=== PATIENT | male | born 1955 | race Caucasian/White ===

== ENCOUNTER 2017-02-23 14:08 | Inpatient (IN) | payer OTHER ==
[~2017-02-23] VITALS: Ht 177.8 cm; Wt 79.5 kg
[~2017-02-23 14:08] MED LIST: ANTIVERT25 MG PO; CARVEDILOL25 MG PO; CLONIDINE HCL0.1 MG PO; CLOPIDOGREL75 MG PO; LEVOTHYROXINE125 MCG PO; METOCLOPRAMIDE10 MG PO; SSD25GM TP; VALIUM5 MG PO; ZANTAC150 MG PO
[2017-02-23 15:22] LABS: EOSINOPHIL (%) 2.6 % (0-5); EOSINOPHIL COUNT 0.2 K/uL (0-0.3); IMMATURE GRANULOCYTE (%) 0.4 % (0.0-0.7); INSTRUMENT ABS NEUTROPHIL CT 6.2 K/uL; LYMPHOCYTE COUNT 1.2 K/uL (1.0-2.8); MCH 29.3 PG (29.0-34.0); MCHC 33.8 G/DL (30.0-36.0); MCV 86.6 FL (86-99); MEAN PLAT.VOLUME 9.8 uM^3 (9.0-12.4); MONOCYTE (%) 5.7 % (3-12); MONOCYTE COUNT 0.5 K/uL (0-0.8); NEUTROPHIL (%) 76.7 % (45-76); NEUTROPHIL COUNT 6.2 K/uL (1.8-6.4); PLATELET COUNT 142 K/uL (156-360); RBC DIS.WIDTH-CV 13.8 % (11.8-14.6); RBC DIS.WIDTH-SD 43.6 % (39-53); RED BLOOD COUNT 4.85 M/uL (4.00-5.50); WHITE BLOOD COUNT 8.1 K/uL (4.1-10.2)
[2017-02-23 15:32] LABS: CHLORIDE 111 mEq/L (99-109); SODIUM 143 mEq/L (136-147)
[2017-02-23 15:34] LABS: GLUCOSE 159 mg/dL (70-99)
[2017-02-23 15:35] LABS: ANION GAP 13 MEQ/L (2-14)
[2017-02-23 15:38] LABS: GFR ESTIMATE (CALCULATED) 9 mL/min/
[2017-02-23 15:39] LABS: UREA NITROGEN (BUN) 57 mg/dL (9-23)
[2017-02-23] MEDS ORDERED: GLIMEPIRIDE2 MG PO (15:39)
[2017-02-23] MEDS ORDERED: COREG12.5 M1 PO (15:39)
[2017-02-23] MEDS ORDERED: PRAVASTATIN SOD40 MG PO (15:40)
[2017-02-23] MEDS ORDERED: CLONIDINE HCL0.1 MG PO (16:24)
[2017-02-23] MEDS ORDERED: GENTAMICIN SULF30 GM TP (16:26)
[2017-02-23] MEDS ORDERED: CALCITRIOL0.25 MCG PO (16:27)
[2017-02-23] MEDS ORDERED: SENSIPAR30 MG PO (16:27)
[2017-02-23] MEDS ORDERED: RENA-VITE RX T1 EACH PO (16:27)
[2017-02-23 22:47] LABS: ADD MIUA? YES; BILIRUBIN NEGATIVE; BLOOD NEGATIVE; COLOR YELLOW ((YELLOW)); GLUCOSE (STRIP) 50; KETONES NEGATIVE; LEUKOCYTES NEGATIVE; NITRITE NEGATIVE; PROTEIN (STRIP) >=500; SPECIFIC GRAVITY 1.009 (1.000-1.030); UROBILINOGEN 0.2 MG/DL (0.2-1.0)
[2017-02-23 22:49] LABS: BACTERIA NONE SEEN /HPF; EPITHELIAL CELLS NONE SEEN /HPF; MUCUS NONE SEEN /LPF; RED BLOOD CELLS 0-5 /HPF (0-5); UCUL ADDED? NO; WHITE BLOOD CELLS 0-5 /HPF (0-5)
[2017-02-23 23:58] VITALS: BP 152/83
[2017-02-24 00:23] LABS: POINT-OF-CARE METER ID UU14174225
[2017-02-24 00:54] LABS: TROP-I INTERPRETATION NEGATIVE; TROPONIN-I 0.05 ng/mL (0.0-0.30)
[2017-02-24 03:50] VITALS: BP 143/70
[2017-02-24 06:19] LABS: POINT-OF-CARE METER ID UU14188625
[2017-02-24 07:56] VITALS: BP 129/62
[2017-02-24 08:00] LABS: EOSINOPHIL (%) 3.9 % (0-5); EOSINOPHIL COUNT 0.3 K/uL (0-0.3); HEMATOCRIT 37.9 % (38.0-50.0); IMMATURE GRANULOCYTE (%) 0.3 % (0.0-0.7); INSTRUMENT ABS NEUTROPHIL CT 4.3 K/uL; LYMPHOCYTE COUNT 1.7 K/uL (1.0-2.8); MCH 29.8 PG (29.0-34.0); MCV 87.5 FL (86-99); MEAN PLAT.VOLUME 10.3 uM^3 (9.0-12.4); MONOCYTE COUNT 0.5 K/uL (0-0.8); NEUTROPHIL (%) 63.7 % (45-76); NEUTROPHIL COUNT 4.3 K/uL (1.8-6.4); PLATELET COUNT 125 K/uL (156-360); RBC DIS.WIDTH-CV 13.8 % (11.8-14.6); RBC DIS.WIDTH-SD 44.1 % (39-53); RED BLOOD COUNT 4.33 M/uL (4.00-5.50); WHITE BLOOD COUNT 6.7 K/uL (4.1-10.2)
[2017-02-24 08:27] LABS: TROP-I INTERPRETATION NEGATIVE; TROPONIN-I 0.08 ng/mL (0.0-0.30)
[2017-02-24 08:30] LABS: ANION GAP 13 MEQ/L (2-14); CHLORIDE 113 MEQ/L (99-109); GFR ESTIMATE (CALCULATED) 9 mL/min/; GLUCOSE 133 mg/dL (70-99); MAGNESIUM 1.8 mg/dl (1.3-2.7); POTASSIUM 4.1 MEQ/L (3.7-5.4); SAMPLE HEMOLYSIS CHECK 0; SAMPLE ICTERIC CHECK 0; SAMPLE LIPEMIA CHECK 0; SODIUM 148 MEQ/L (136-147); UREA NITROGEN (BUN) 61 mg/dL (9-23)
[2017-02-24 10:19] LABS: HBSG INDEX 0.22; HPCA INDEX 0.14
[2017-02-24 10:20] LABS: ANTI-HEPATITIS A VIRUS (IGM) Nonreactive; HAV INDEX 0.14
[2017-02-24 10:21] LABS: ANTI-HEPATITIS B CORE (IGM) Nonreactive; HBC IgM INDEX 0.09
[2017-02-24 12:34] LABS: POINT-OF-CARE METER ID UU14174225
[2017-02-24 13:36] LABS: TROP-I INTERPRETATION NEGATIVE; TROPONIN-I 0.06 ng/mL (0.0-0.30)
[2017-02-24 15:51] VITALS: BP 147/90
[2017-02-24 17:48] VITALS: BP 168/85
[2017-02-24 18:17] LABS: GASTRIC OCCULT BLD. NEGATIVE; INTERNAL CONTROL VALID? YES
[2017-02-24 20:32] LABS: POINT-OF-CARE METER ID UU13113675
[2017-02-24 21:29] VITALS: BP 196/102
[2017-02-24 21:50] VITALS: BP 158/82
[2017-02-24 22:11] LABS: ALKALINE PHOSPHATASE 76 IU/L (3-129); ANION GAP 10 MEQ/L (2-14); CHLORIDE 109 MEQ/L (99-109); GFR ESTIMATE (CALCULATED) 9 mL/min/; GLUCOSE 162 mg/dL (70-99); POTASSIUM 3.6 MEQ/L (3.7-5.4); SAMPLE HEMOLYSIS CHECK 0; SAMPLE ICTERIC CHECK 0; SAMPLE LIPEMIA CHECK 0; SODIUM 143 MEQ/L (136-147); TOTAL BILIRUBIN 0.4 MG/DL (0.0-1.0); UREA NITROGEN (BUN) 53 mg/dL (9-23)
[2017-02-25 03:44] VITALS: BP 169/84
[2017-02-25 08:28] VITALS: BP 145/74
[2017-02-25 08:36] LABS: EOSINOPHIL (%) 4.3 % (0-5); EOSINOPHIL COUNT 0.3 K/uL (0-0.3); HEMATOCRIT 32.7 % (38.0-50.0); IMMATURE GRANULOCYTE (%) 0.3 % (0.0-0.7); INSTRUMENT ABS NEUTROPHIL CT 4.4 K/uL; LYMPHOCYTE COUNT 1.4 K/uL (1.0-2.8); MCH 29.8 PG (29.0-34.0); MCHC 33.9 G/DL (30.0-36.0); MCV 87.7 FL (86-99); MEAN PLAT.VOLUME 9.5 uM^3 (9.0-12.4); MONOCYTE (%) 9.9 % (3-12); MONOCYTE COUNT 0.7 K/uL (0-0.8); NEUTROPHIL (%) 65.3 % (45-76); NEUTROPHIL COUNT 4.4 K/uL (1.8-6.4); PLATELET COUNT 113 K/uL (156-360); RBC DIS.WIDTH-CV 13.9 % (11.8-14.6); RBC DIS.WIDTH-SD 44.5 % (39-53); RED BLOOD COUNT 3.73 M/uL (4.00-5.50); WHITE BLOOD COUNT 6.7 K/uL (4.1-10.2)
[2017-02-25 09:13] LABS: ALKALINE PHOSPHATASE 65 IU/L (3-129); ANION GAP 10 MEQ/L (2-14); CHLORIDE 109 MEQ/L (99-109); GFR ESTIMATE (CALCULATED) 9 mL/min/; GLUCOSE 215 mg/dL (70-99); POTASSIUM 3.4 MEQ/L (3.7-5.4); SAMPLE HEMOLYSIS CHECK 0; SAMPLE ICTERIC CHECK 0; SAMPLE LIPEMIA CHECK 0; SODIUM 142 MEQ/L (136-147); UREA NITROGEN (BUN) 54 mg/dL (9-23)
[2017-02-25 09:25] LABS: TOTAL BILIRUBIN 0.3 MG/DL (0.0-1.0)
[2017-02-25 11:47] VITALS: BP 118/64
[2017-02-25 12:31] LABS: POINT-OF-CARE METER ID UU13113725
[2017-02-25 17:26] VITALS: BP 128/76
[2017-02-25 17:30] LABS: POINT-OF-CARE METER ID UU13113725
[2017-02-25 17:59] LABS: POINT-OF-CARE METER ID UU13113725
[2017-02-25 19:29] VITALS: BP 162/76
[2017-02-25 20:46] LABS: POINT-OF-CARE METER ID UU13113725
[2017-02-25 23:13] VITALS: BP 179/93
[2017-02-26] VITALS (7 sets, daily range): BP systolic 116–160; BP diastolic 55–83
[2017-02-26 06:40] LABS: EOSINOPHIL (%) 4.9 % (0-5); EOSINOPHIL COUNT 0.3 K/uL (0-0.3); HEMATOCRIT 35.6 % (38.0-50.0); IMMATURE GRANULOCYTE (%) 0.4 % (0.0-0.7); LYMPHOCYTE COUNT 1.6 K/uL (1.0-2.8); MCH 29.9 PG (29.0-34.0); MCHC 33.7 G/DL (30.0-36.0); MCV 88.6 FL (86-99); MEAN PLAT.VOLUME 10.6 uM^3 (9.0-12.4); MONOCYTE (%) 10.6 % (3-12); MONOCYTE COUNT 0.7 K/uL (0-0.8); NEUTROPHIL (%) 60.2 % (45-76); PLATELET COUNT 104 K/uL (156-360); RBC DIS.WIDTH-CV 13.7 % (11.8-14.6); RBC DIS.WIDTH-SD 44.5 % (39-53); RED BLOOD COUNT 4.02 M/uL (4.00-5.50); WHITE BLOOD COUNT 6.7 K/uL (4.1-10.2)
[2017-02-26 08:16] LABS: ANION GAP 16 MEQ/L (2-14); CHLORIDE 101 MEQ/L (99-109); GFR ESTIMATE (CALCULATED) 14 mL/min/; GLUCOSE 144 mg/dL (70-99); POTASSIUM 3.4 MEQ/L (3.7-5.4); SAMPLE HEMOLYSIS CHECK 0; SAMPLE ICTERIC CHECK 0; SAMPLE LIPEMIA CHECK 0; SODIUM 137 MEQ/L (136-147); UREA NITROGEN (BUN) 26 mg/dL (9-23)
[2017-02-26 11:48] LABS: POINT-OF-CARE METER ID UU13113725
[2017-02-26 15:59] LABS: POINT-OF-CARE METER ID UU13113725
[2017-02-26 21:11] LABS: POINT-OF-CARE METER ID UU13113725
[2017-02-27 03:28] VITALS: BP 130/78
[2017-02-27 05:40] LABS: POINT-OF-CARE METER ID UU13113725
[2017-02-27 06:33] LABS: EOSINOPHIL (%) 5.3 % (0-5); EOSINOPHIL COUNT 0.4 K/uL (0-0.3); HEMATOCRIT 35.3 % (38.0-50.0); IMMATURE GRANULOCYTE (%) 0.4 % (0.0-0.7); INSTRUMENT ABS NEUTROPHIL CT 4.4 K/uL; LYMPHOCYTE COUNT 1.7 K/uL (1.0-2.8); MCH 29.9 PG (29.0-34.0); MCHC 33.7 G/DL (30.0-36.0); MCV 88.7 FL (86-99); MEAN PLAT.VOLUME 9.6 uM^3 (9.0-12.4); MONOCYTE (%) 11.7 % (3-12); MONOCYTE COUNT 0.9 K/uL (0-0.8); NEUTROPHIL (%) 59.3 % (45-76); NEUTROPHIL COUNT 4.4 K/uL (1.8-6.4); PLATELET COUNT 105 K/uL (156-360); RBC DIS.WIDTH-CV 13.7 % (11.8-14.6); RBC DIS.WIDTH-SD 44.6 % (39-53); RED BLOOD COUNT 3.98 M/uL (4.00-5.50); WHITE BLOOD COUNT 7.4 K/uL (4.1-10.2)
[2017-02-27 06:56] LABS: ANION GAP 9 MEQ/L (2-14); CHLORIDE 101 MEQ/L (99-109); GFR ESTIMATE (CALCULATED) 15 mL/min/; GLUCOSE 145 mg/dL (70-99); SAMPLE HEMOLYSIS CHECK 0; SAMPLE ICTERIC CHECK 0; SAMPLE LIPEMIA CHECK 0; SODIUM 136 MEQ/L (136-147); UREA NITROGEN (BUN) 23 mg/dL (9-23)
[2017-02-27 07:26] VITALS: BP 129/78
[2017-02-27 10:17] VITALS: BP 148/85
[2017-02-27 12:53] LABS: POINT-OF-CARE METER ID UU13113725
[2017-02-27 15:38] VITALS: BP 136/81
[2017-02-27 16:57] LABS: POINT-OF-CARE METER ID UU13113725
[2017-02-27 18:48] VITALS: BP 112/64
[2017-02-27 21:27] LABS: POINT-OF-CARE METER ID UU13113725
[2017-02-27 23:12] VITALS: BP 110/68
[2017-02-28 03:55] VITALS: BP 136/75
[2017-02-28 05:55] LABS: POINT-OF-CARE METER ID UU13113725
[2017-02-28 06:47] LABS: EOSINOPHIL (%) 6.1 % (0-5); EOSINOPHIL COUNT 0.5 K/uL (0-0.3); HEMATOCRIT 34.7 % (38.0-50.0); IMMATURE GRANULOCYTE (%) 0.6 % (0.0-0.7); IMMATURE GRANULOCYTE COUNT 0.1 K/uL; INSTRUMENT ABS NEUTROPHIL CT 4.8 K/uL; LYMPHOCYTE COUNT 1.8 K/uL (1.0-2.8); MCH 29.5 PG (29.0-34.0); MCHC 33.4 G/DL (30.0-36.0); MCV 88.3 FL (86-99); MEAN PLAT.VOLUME 10.2 uM^3 (9.0-12.4); MONOCYTE (%) 9.6 % (3-12); MONOCYTE COUNT 0.8 K/uL (0-0.8); NEUTROPHIL (%) 60.6 % (45-76); NEUTROPHIL COUNT 4.8 K/uL (1.8-6.4); PLATELET COUNT 109 K/uL (156-360); RBC DIS.WIDTH-CV 13.5 % (11.8-14.6); RBC DIS.WIDTH-SD 43.7 % (39-53); RED BLOOD COUNT 3.93 M/uL (4.00-5.50); WHITE BLOOD COUNT 7.8 K/uL (4.1-10.2)
[2017-02-28 07:21] LABS: ANION GAP 11 MEQ/L (2-14); CHLORIDE 99 MEQ/L (99-109); GFR ESTIMATE (CALCULATED) 11 mL/min/; GLUCOSE 131 mg/dL (70-99); POTASSIUM 4.1 MEQ/L (3.7-5.4); SAMPLE HEMOLYSIS CHECK 0; SAMPLE ICTERIC CHECK 0; SAMPLE LIPEMIA CHECK 0; SODIUM 135 MEQ/L (136-147)
[2017-02-28 07:35] LABS: UREA NITROGEN (BUN) 40 mg/dL (9-23)
[2017-02-28 07:38] VITALS: BP 146/70
[2017-02-28 10:31] LABS: MAGNESIUM 1.9 mg/dl (1.3-2.7)
[2017-02-28 11:45] LABS: POINT-OF-CARE METER ID UU13113725
[2017-02-28 11:48] VITALS: BP 113/71
[2017-02-28 16:02] LABS: POINT-OF-CARE METER ID UU13113725
[2017-02-28 16:06] VITALS: BP 146/79
[2017-02-28 16:24] LABS: C-REACTIVE PROTEIN 2.8 MG/L (0-10)
[2017-02-28 18:04] LABS: ERTH.SED.RATE 17 MM/HR (0-20)
[2017-02-28 19:16] VITALS: BP 132/80
[2017-02-28 22:55] VITALS: BP 150/82
[2017-03-01 04:27] VITALS: BP 140/78
[2017-03-01 07:18] LABS: C DIFF TOXIN NEGATIVE (NEGATIVE)
[2017-03-01 07:20] LABS: PROBE CHECK PASS; SPECIMEN PROCESSING CONTROL PASS
[2017-03-01 07:46] VITALS: BP 112/55
[2017-03-01 09:25] LABS: EOSINOPHIL (%) 4.9 % (0-5); EOSINOPHIL COUNT 0.5 K/uL (0-0.3); HEMATOCRIT 36.5 % (38.0-50.0); IMMATURE GRANULOCYTE (%) 0.4 % (0.0-0.7); INSTRUMENT ABS NEUTROPHIL CT 6.8 K/uL; LYMPHOCYTE COUNT 1.5 K/uL (1.0-2.8); MCH 29.9 PG (29.0-34.0); MEAN PLAT.VOLUME 10.5 uM^3 (9.0-12.4); MONOCYTE (%) 8.3 % (3-12); MONOCYTE COUNT 0.8 K/uL (0-0.8); NEUTROPHIL (%) 70.8 % (45-76); NEUTROPHIL COUNT 6.8 K/uL (1.8-6.4); PLATELET COUNT 129 K/uL (156-360); RBC DIS.WIDTH-CV 13.5 % (11.8-14.6); RBC DIS.WIDTH-SD 43.4 % (39-53); RED BLOOD COUNT 4.15 M/uL (4.00-5.50); WHITE BLOOD COUNT 9.6 K/uL (4.1-10.2)
[2017-03-01 09:59] LABS: ANION GAP 13 MEQ/L (2-14); CHLORIDE 97 MEQ/L (99-109); GFR ESTIMATE (CALCULATED) 9 mL/min/; GLUCOSE 128 mg/dL (70-99); POTASSIUM 4.2 MEQ/L (3.7-5.4); SAMPLE HEMOLYSIS CHECK 0; SAMPLE ICTERIC CHECK 0; SAMPLE LIPEMIA CHECK 0; SODIUM 134 MEQ/L (136-147); UREA NITROGEN (BUN) 57 mg/dL (9-23)
[2017-03-01 13:47] VITALS: BP 144/88
[2017-03-01 15:32] VITALS: BP 145/78
[2017-03-01 16:01] LABS: POINT-OF-CARE METER ID UU13113725
[2017-03-01 19:36] VITALS: BP 153/88
[2017-03-01 23:50] VITALS: BP 159/88
[2017-03-02 04:34] VITALS: BP 130/80
[2017-03-02 07:46] VITALS: BP 115/71
[2017-03-02 11:13] VITALS: BP 112/69
[2017-03-02 15:57] VITALS: BP 159/87
[2017-03-02 19:03] VITALS: BP 176/96
[2017-03-02 23:21] VITALS: BP 130/68
[2017-03-03 03:56] VITALS: BP 145/61
[2017-03-03 07:55] VITALS: BP 118/81
[2017-03-03 09:17] LABS: BASOPHIL COUNT 0.1 K/uL (0-0.1); EOSINOPHIL (%) 5.7 % (0-5); EOSINOPHIL COUNT 0.6 K/uL (0-0.3); HEMATOCRIT 37.8 % (38.0-50.0); IMMATURE GRANULOCYTE (%) 0.5 % (0.0-0.7); IMMATURE GRANULOCYTE COUNT 0.1 K/uL; INSTRUMENT ABS NEUTROPHIL CT 6.7 K/uL; LYMPHOCYTE COUNT 1.4 K/uL (1.0-2.8); MCH 29.7 PG (29.0-34.0); MCHC 33.6 G/DL (30.0-36.0); MCV 88.3 FL (86-99); MEAN PLAT.VOLUME 10.9 uM^3 (9.0-12.4); MONOCYTE (%) 9.6 % (3-12); MONOCYTE COUNT 0.9 K/uL (0-0.8); NEUTROPHIL (%) 69.5 % (45-76); NEUTROPHIL COUNT 6.7 K/uL (1.8-6.4); PLATELET COUNT 144 K/uL (156-360); RBC DIS.WIDTH-CV 13.7 % (11.8-14.6); RBC DIS.WIDTH-SD 44.1 % (39-53); RED BLOOD COUNT 4.28 M/uL (4.00-5.50); WHITE BLOOD COUNT 9.7 K/uL (4.1-10.2)
[2017-03-03 09:22] LABS: ANION GAP 15 MEQ/L (2-14); CHLORIDE 99 MEQ/L (99-109); POTASSIUM 4.3 MEQ/L (3.7-5.4); SAMPLE HEMOLYSIS CHECK 0; SAMPLE ICTERIC CHECK 0; SAMPLE LIPEMIA CHECK 0; SODIUM 134 MEQ/L (136-147)
[2017-03-03 09:32] LABS: GFR ESTIMATE (CALCULATED) 9 mL/min/; GLUCOSE 150 mg/dL (70-99); UREA NITROGEN (BUN) 57 mg/dL (9-23)
[2017-03-03 16:33] VITALS: BP 137/78
[2017-03-03 19:14] VITALS: BP 124/69
[2017-03-03 22:57] VITALS: BP 110/81
[2017-03-04 03:23] VITALS: BP 134/74
[2017-03-04 06:00] VITALS: BP 139/80
[2017-03-04 07:00] VITALS: BP 126/66
[2017-03-04 16:07] VITALS: BP 149/79
[2017-03-04 16:40] LABS: POINT-OF-CARE METER ID UU13113725
[2017-03-04 23:04] VITALS: BP 147/72
[2017-03-05 03:53] VITALS: BP 152/80
[2017-03-05 08:19] LABS: EOSINOPHIL (%) 7.2 % (0-5); EOSINOPHIL COUNT 0.5 K/uL (0-0.3); HEMATOCRIT 37.2 % (38.0-50.0); IMMATURE GRANULOCYTE (%) 0.6 % (0.0-0.7); INSTRUMENT ABS NEUTROPHIL CT 3.8 K/uL; LYMPHOCYTE COUNT 1.5 K/uL (1.0-2.8); MCH 29.8 PG (29.0-34.0); MCHC 33.9 G/DL (30.0-36.0); MCV 87.9 FL (86-99); MEAN PLAT.VOLUME 9.6 uM^3 (9.0-12.4); MONOCYTE (%) 9.7 % (3-12); MONOCYTE COUNT 0.6 K/uL (0-0.8); NEUTROPHIL (%) 58.7 % (45-76); NEUTROPHIL COUNT 3.8 K/uL (1.8-6.4); PLATELET COUNT 146 K/uL (156-360); RBC DIS.WIDTH-CV 13.6 % (11.8-14.6); RBC DIS.WIDTH-SD 43.8 % (39-53); RED BLOOD COUNT 4.23 M/uL (4.00-5.50)
[2017-03-05 08:28] LABS: WHITE BLOOD COUNT 6.5 K/uL (4.1-10.2)
[2017-03-05 08:31] LABS: ANION GAP 8 MEQ/L (2-14); CHLORIDE 101 MEQ/L (99-109); GLUCOSE 123 mg/dL (70-99); SAMPLE HEMOLYSIS CHECK 0; SAMPLE ICTERIC CHECK 0; SAMPLE LIPEMIA CHECK 0; SODIUM 136 MEQ/L (136-147)
[2017-03-05 08:34] LABS: GFR ESTIMATE (CALCULATED) 24 mL/min/; POTASSIUM 3.3 MEQ/L (3.7-5.4); UREA NITROGEN (BUN) 23 mg/dL (9-23)
[2017-03-05 11:20] VITALS: BP 144/85
[2017-03-05 15:50] VITALS: BP 166/97
[2017-03-05 20:48] LABS: POINT-OF-CARE METER ID UU13113725
[2017-03-05 21:12] VITALS: BP 185/100
[2017-03-05 22:19] VITALS: BP 168/88
[2017-03-06 05:43] LABS: POINT-OF-CARE METER ID UU13113725
[2017-03-06 07:06] VITALS: BP 133/86
[2017-03-06 08:32] LABS: ALKALINE PHOSPHATASE 73 IU/L (3-129); ANION GAP 13 MEQ/L (2-14); CHLORIDE 98 MEQ/L (99-109); GFR ESTIMATE (CALCULATED) 12 mL/min/; GLUCOSE 109 mg/dL (70-99); POTASSIUM 4.2 MEQ/L (3.7-5.4); SAMPLE HEMOLYSIS CHECK 1; SAMPLE ICTERIC CHECK 0; SAMPLE LIPEMIA CHECK 0; SODIUM 133 MEQ/L (136-147); TOTAL BILIRUBIN 0.5 MG/DL (0.0-1.0); UREA NITROGEN (BUN) 38 mg/dL (9-23)
[2017-03-06 08:38] LABS: EOSINOPHIL (%) 7.9 % (0-5); EOSINOPHIL COUNT 0.6 K/uL (0-0.3); HEMATOCRIT 36.6 % (38.0-50.0); IMMATURE GRANULOCYTE (%) 0.7 % (0.0-0.7); IMMATURE GRANULOCYTE COUNT 0.1 K/uL; INSTRUMENT ABS NEUTROPHIL CT 4.4 K/uL; LYMPHOCYTE COUNT 1.8 K/uL (1.0-2.8); MCH 29.8 PG (29.0-34.0); MCHC 34.4 G/DL (30.0-36.0); MCV 86.5 FL (86-99); MEAN PLAT.VOLUME 9.8 uM^3 (9.0-12.4); MONOCYTE (%) 10.6 % (3-12); MONOCYTE COUNT 0.8 K/uL (0-0.8); NEUTROPHIL (%) 57.1 % (45-76); NEUTROPHIL COUNT 4.4 K/uL (1.8-6.4); PLATELET COUNT 145 K/uL (156-360); RBC DIS.WIDTH-CV 13.4 % (11.8-14.6); RED BLOOD COUNT 4.23 M/uL (4.00-5.50); WHITE BLOOD COUNT 7.6 K/uL (4.1-10.2)
[2017-03-06 15:49] VITALS: BP 137/86
[2017-03-06 16:30] LABS: POINT-OF-CARE METER ID UU13113725
[2017-03-06 21:40] VITALS: BP 152/83
[2017-03-06 22:14] VITALS: BP 161/86
[2017-03-07 06:24] LABS: POINT-OF-CARE METER ID UU13113725
[2017-03-07 06:36] LABS: BASOPHIL COUNT 0.1 K/uL (0-0.1); EOSINOPHIL (%) 7.1 % (0-5); EOSINOPHIL COUNT 0.6 K/uL (0-0.3); HEMATOCRIT 37.4 % (38.0-50.0); IMMATURE GRANULOCYTE (%) 0.6 % (0.0-0.7); IMMATURE GRANULOCYTE COUNT 0.1 K/uL; INSTRUMENT ABS NEUTROPHIL CT 4.8 K/uL; MCH 29.4 PG (29.0-34.0); MCV 86.6 FL (86-99); MEAN PLAT.VOLUME 9.6 uM^3 (9.0-12.4); MONOCYTE (%) 10.1 % (3-12); MONOCYTE COUNT 0.8 K/uL (0-0.8); NEUTROPHIL (%) 57.8 % (45-76); NEUTROPHIL COUNT 4.8 K/uL (1.8-6.4); PLATELET COUNT 146 K/uL (156-360); RBC DIS.WIDTH-CV 13.2 % (11.8-14.6); RBC DIS.WIDTH-SD 41.5 % (39-53); RED BLOOD COUNT 4.32 M/uL (4.00-5.50); WHITE BLOOD COUNT 8.3 K/uL (4.1-10.2)
[2017-03-07 06:48] VITALS: BP 121/69
[2017-03-07 07:08] LABS: ALKALINE PHOSPHATASE 76 IU/L (3-129); ANION GAP 14 MEQ/L (2-14); CHLORIDE 99 MEQ/L (99-109); GLUCOSE 126 mg/dL (70-99); POTASSIUM 4.3 MEQ/L (3.7-5.4); SAMPLE HEMOLYSIS CHECK 0; SAMPLE ICTERIC CHECK 0; SAMPLE LIPEMIA CHECK 0; SODIUM 135 MEQ/L (136-147); TOTAL BILIRUBIN 0.5 MG/DL (0.0-1.0); UREA NITROGEN (BUN) 50 mg/dL (9-23)
[2017-03-07 07:14] LABS: GFR ESTIMATE (CALCULATED) 9 mL/min/
[2017-03-07 08:15] LABS: Estimated Average Glucose 105 mg/dL (70-123); HEMOGLOBIN A1c (GLYCOHEMOGLOB) 5.3 % HGB (Below 5.7)
[2017-03-07 10:45] LABS: AHBS INDEX 1.15; HEPATITIS B SURFACE ANTIBODY Nonreactive
[2017-03-07 14:15] VITALS: BP 133/83
[2017-03-07 15:39] VITALS: BP 112/73
[2017-03-07 16:16] LABS: POINT-OF-CARE METER ID UU13113725
[2017-03-07 22:01] VITALS: BP 154/98
[2017-03-07 22:59] VITALS: BP 150/70
[2017-03-08 06:41] VITALS: BP 134/64
[2017-03-08 15:08] VITALS: BP 162/85
[2017-03-08 16:56] VITALS: BP 141/91
[2017-03-08 22:47] VITALS: BP 135/79
[2017-03-09 05:52] VITALS: BP 142/83; BP 80/61
[2017-03-09 05:53] VITALS: BP 81/57
[2017-03-09 07:16] VITALS: BP 121/55
[2017-03-09] MEDS ORDERED: MIDODRINE HCL5 MG PO (08:04)
[2017-03-09] MEDS ORDERED: NOVOLOG PE100 UNITS/ SC (08:05)
[2017-03-09 08:42] LABS: EOSINOPHIL (%) 6.7 % (0-5); EOSINOPHIL COUNT 0.6 K/uL (0-0.3); HEMATOCRIT 34.5 % (38.0-50.0); IMMATURE GRANULOCYTE (%) 0.7 % (0.0-0.7); IMMATURE GRANULOCYTE COUNT 0.1 K/uL; INSTRUMENT ABS NEUTROPHIL CT 5.2 K/uL; LYMPHOCYTE COUNT 1.7 K/uL (1.0-2.8); MCH 29.8 PG (29.0-34.0); MCHC 33.9 G/DL (30.0-36.0); MCV 87.8 FL (86-99); MEAN PLAT.VOLUME 9.7 uM^3 (9.0-12.4); MONOCYTE (%) 8.8 % (3-12); MONOCYTE COUNT 0.7 K/uL (0-0.8); NEUTROPHIL (%) 63.2 % (45-76); NEUTROPHIL COUNT 5.2 K/uL (1.8-6.4); PLATELET COUNT 148 K/uL (156-360); RBC DIS.WIDTH-CV 13.4 % (11.8-14.6); RBC DIS.WIDTH-SD 43.1 % (39-53); RED BLOOD COUNT 3.93 M/uL (4.00-5.50); WHITE BLOOD COUNT 8.3 K/uL (4.1-10.2)
[2017-03-09 08:58] LABS: ANION GAP 11 MEQ/L (2-14); CHLORIDE 97 MEQ/L (99-109); GFR ESTIMATE (CALCULATED) 9 mL/min/; GLUCOSE 178 mg/dL (70-99); POTASSIUM 4.1 MEQ/L (3.7-5.4); SAMPLE HEMOLYSIS CHECK 0; SAMPLE ICTERIC CHECK 0; SAMPLE LIPEMIA CHECK 0; SODIUM 133 MEQ/L (136-147); UREA NITROGEN (BUN) 50 mg/dL (9-23)
[2017-03-09] MEDS ORDERED: CARVEDILOL3.125 MG PO (11:18)
[2017-03-09 12:47] LABS: POINT-OF-CARE METER ID UU13113725
[2017-03-09 14:46] VITALS: BP 169/80
[2017-03-09 16:12] LABS: POINT-OF-CARE METER ID UU13113725
== END 2017-03-09 16:38 | DRG 981 ==
LOC: EME 14:08 → 5EAST 16:12 → EDOF 16:12 → 5SOUTH 16:12 → 5EAST 02-24 21:07
PROVIDERS: Emergency Medicine; Family Medicine; Hospitalist; Internal Medicine; Internal Medicine Nephrology
PROC: 02HV33Z Insertion of Infusion Device into Superior Vena Cava, Percutaneous Approach (ICD-10-PCS; principal; 2017-02-24)
PROC: 3E1M39Z Irrigation of Peritoneal Cavity using Dialysate, Percutaneous Approach (ICD-10-PCS; 2017-02-24)
PROC: 5A1D60Z (ICD-10-PCS; 2017-02-25)
PROC: 0WPG33Z Removal of Infusion Device from Peritoneal Cavity, Percutaneous Approach (ICD-10-PCS; 2017-03-02)
DX: I95.1 Orthostatic hypotension (principal); I12.0 Hypertensive chronic kidney disease with stage 5 chronic kidney disease or end stage renal disease; N18.6 End stage renal disease; Z99.2 Dependence on renal dialysis; E86.0 Dehydration; T85.691A Other mechanical complication of intraperitoneal dialysis catheter, initial encounter; Y83.1 Surgical operation with implant of artificial internal device as the cause of abnormal reaction of the patient, or of later complication, without mention of misadventure at the time of the procedure; H50.9 Unspecified strabismus; H53.002 Unspecified amblyopia, left eye; E11.3293 Type 2 diabetes mellitus with mild nonproliferative diabetic retinopathy without macular edema, bilateral; E11.22 Type 2 diabetes mellitus with diabetic chronic kidney disease; N25.0 Renal osteodystrophy; D69.6 Thrombocytopenia, unspecified; E78.5 Hyperlipidemia, unspecified; F17.210 Nicotine dependence, cigarettes, uncomplicated; Z75.1 Person awaiting admission to adequate facility elsewhere; Z79.84 Long term (current) use of oral hypoglycemic drugs; I69.328 Other speech and language deficits following cerebral infarction; R47.81 Slurred speech; I69.398 Other sequelae of cerebral infarction; R26.89 Other abnormalities of gait and mobility; Z91.15 Patient's noncompliance with renal dialysis; K21.9 Gastro-esophageal reflux disease without esophagitis; E87.6 Hypokalemia
CPT/HCPCS: 70450; 71010; 74000; 80048; 80048 91; 80053; 80069; 80074; 80076; 81003; 82271; 82948; 83036; 83735; 84484; 85025; 85651; 86140; 86706; 87493; 93005; 94799; 99281; 99285; C1788; J0360; J0690; J1200; J1644; J1815; J2250; J2405; J2765; J7030; S0020

== ENCOUNTER 2017-04-08 08:54 | Day surgery (SDC) | payer OTHER ==
[~2017-04-08] VITALS: Ht 177.8 cm; Wt 82.0 kg
[~2017-04-08 08:54] MED LIST changes: +CALCITRIOL0.25 MCG PO; +CARVEDILOL3.125 MG PO; +COREG12.5 M1 PO; +DULCOLAX10 MG PR; +FLEET MINERAL133 ML PR; +GENTAMICIN SULF30 GM TP; +GLIMEPIRIDE2 MG PO; +MIDODRINE HCL5 MG PO; +NOVOLOG 10100 UNITS/ SC; +NOVOLOG PE100 UNITS/ SC; +PRAVASTATIN SOD40 MG PO; +PROAMATINE2.5 MG PO; +RENA-VITE RX T1 EACH PO; +SENSIPAR30 MG PO
[2017-04-08] MEDS ORDERED: PLAVIX75 MG PO (09:36)
[2017-04-08] MEDS ORDERED: VITAMIN D35000 UNIT PO (09:38)
[2017-04-08 09:39] LABS: POINT-OF-CARE METER ID UU14174212
[2017-04-08 09:40] VITALS: BP 154/87
[2017-04-08 10:11] LABS: MCH 30.4 PG (29.0-34.0); MCHC 33.2 G/DL (30.0-36.0); MCV 91.8 FL (86-99); MEAN PLAT.VOLUME 9.7 uM^3 (9.0-12.4); PLATELET COUNT 161 K/uL (156-360); RBC DIS.WIDTH-CV 13.6 % (11.8-14.6); RBC DIS.WIDTH-SD 45.2 % (39-53); RED BLOOD COUNT 4.14 M/uL (4.00-5.50); WHITE BLOOD COUNT 8.8 K/uL (4.1-10.2)
[2017-04-08 10:20] LABS: CHLORIDE 104 mEq/L (99-109); POTASSIUM 5.5 mEq/L (3.7-5.4); SODIUM 143 mEq/L (136-147)
[2017-04-08 10:22] LABS: GLUCOSE 141 mg/dL (70-99)
[2017-04-08 10:23] LABS: ANION GAP 15 MEQ/L (2-14)
[2017-04-08 10:25] LABS: GFR ESTIMATE (CALCULATED) 8 mL/min/
[2017-04-08 10:26] LABS: UREA NITROGEN (BUN) 70 mg/dL (9-23)
[2017-04-08 12:12] LABS: METH RESISTANT S AUREUS PCR NEGATIVE (NEGATIVE)
[2017-04-08 12:14] LABS: PROBE CHECK PASS; SPECIMEN PROCESSING CONTROL PASS
[2017-04-08 15:49] LABS: C DIFF TOXIN NEGATIVE (NEGATIVE); PROBE CHECK PASS; SPECIMEN PROCESSING CONTROL PASS
[2017-04-08] MEDS ORDERED: ULTRAM50 MG PO (16:39)
[2017-04-08 17:30] VITALS: BP 161/70
[2017-04-08 18:10] VITALS: BP 174/84
== END 2017-04-08 18:27 | disposition home or self-care (01) ==
LOC: SDC 08:54
PROVIDERS: Surgery
DX: I12.0 Hypertensive chronic kidney disease with stage 5 chronic kidney disease or end stage renal disease (principal); E11.22 Type 2 diabetes mellitus with diabetic chronic kidney disease; N18.6 End stage renal disease; Z99.2 Dependence on renal dialysis; E78.5 Hyperlipidemia, unspecified; K21.9 Gastro-esophageal reflux disease without esophagitis; E03.9 Hypothyroidism, unspecified; Z79.02 Long term (current) use of antithrombotics/antiplatelets; Z82.3 Family history of stroke; Z83.3 Family history of diabetes mellitus; Z82.49 Family history of ischemic heart disease and other diseases of the circulatory system; Z87.891 Personal history of nicotine dependence; Z86.73 Personal history of transient ischemic attack (TIA), and cerebral infarction without residual deficits
CPT/HCPCS: 70450; 80048; 82948; 85027; 87493; 87641; C1768; J0690; J1644; J2250; J2405; J2710; J3010

== ENCOUNTER 2017-07-06 19:49 | Emergency (ER) | payer BC, OTHER ==
[~2017-07-06] VITALS: Ht 177.8 cm; Wt 81.8 kg
[~2017-07-06 19:49] MED LIST changes: +PLAVIX75 MG PO; +ULTRAM50 MG PO; +VITAMIN D35000 UNIT PO
[2017-07-06 20:15] LABS: POINT-OF-CARE METER ID UU13113778
[2017-07-06 20:41] LABS: HEMATOCRIT 39.9 % (38.0-50.0); MCH 30.4 PG (29.0-34.0); MCHC 33.8 G/DL (30.0-36.0); MCV 89.9 FL (86-99); PLATELET COUNT 120 K/uL (156-360); RBC DIS.WIDTH-SD 42.6 % (39-53); RED BLOOD COUNT 4.44 M/uL (4.00-5.50); WHITE BLOOD COUNT 6.5 K/uL (4.1-10.2)
[2017-07-06 20:51] LABS: CHLORIDE 99 mEq/L (99-109); POTASSIUM 4.7 mEq/L (3.7-5.4); SODIUM 141 mEq/L (136-147)
[2017-07-06 20:52] LABS: GLUCOSE 113 mg/dL (70-99)
[2017-07-06 20:54] LABS: ANION GAP 14 MEQ/L (2-14)
[2017-07-06 20:56] LABS: GFR ESTIMATE (CALCULATED) 10 mL/min/
[2017-07-06 20:57] LABS: UREA NITROGEN (BUN) 30 mg/dL (9-23)
[2017-07-06 21:24] LABS: TROP-I INTERPRETATION NEGATIVE; TROPONIN-I 0.02 ng/mL (0.0-0.30)
[2017-07-06 21:33] LABS: CREATINE KINASE 53 IU/L (1-294)
[2017-07-07 00:03] LABS: PROTHROMBIN TIME 11.3 SEC (10.2-12.9)
[2017-07-07 00:06] LABS: PTT 34.5 SEC (25-37)
[2017-07-07 03:39] VITALS: BP 124/65
== END 2017-07-07 03:39 | disposition short-term general hospital (02) ==
LOC: EME 19:49
DX: I74.3 Embolism and thrombosis of arteries of the lower extremities (principal); G93.40 Encephalopathy, unspecified; E11.22 Type 2 diabetes mellitus with diabetic chronic kidney disease; N18.9 Chronic kidney disease, unspecified; Z99.2 Dependence on renal dialysis; L03.115 Cellulitis of right lower limb; Z86.73 Personal history of transient ischemic attack (TIA), and cerebral infarction without residual deficits; F17.200 Nicotine dependence, unspecified, uncomplicated; F03.90 Unspecified dementia, unspecified severity, without behavioral disturbance, psychotic disturbance, mood disturbance, and anxiety; Z88.6 Allergy status to analgesic agent
CPT/HCPCS: 70450; 71020; 80048; 81003; 82550; 82948; 84484; 85027; 85610; 85730; 93005; 93926; 93971; 99281; 99285

== ENCOUNTER 2017-07-17 07:31 | Emergency (ER) | payer BC, OTHER ==
[~2017-07-17] VITALS: Ht 177.8 cm; Wt 81.0 kg
[2017-07-17 08:24] LABS: HEMATOCRIT 35.6 % (38.0-50.0); MCH 29.7 PG (29.0-34.0); MCHC 32.6 G/DL (30.0-36.0); MEAN PLAT.VOLUME 9.1 uM^3 (9.0-12.4); RBC DIS.WIDTH-CV 12.8 % (11.8-14.6); RBC DIS.WIDTH-SD 42.4 % (39-53); RED BLOOD COUNT 3.91 M/uL (4.00-5.50); WHITE BLOOD COUNT 14.6 K/uL (4.1-10.2)
[2017-07-17 08:29] LABS: INTER. NORMALIZED RATIO 1.2; PROTHROMBIN TIME 13.2 SEC (10.2-12.9)
[2017-07-17 08:49] LABS: ANION GAP 13 MEQ/L (2-14); CHLORIDE 96 MEQ/L (99-109); POTASSIUM 4.1 MEQ/L (3.7-5.4); SAMPLE HEMOLYSIS CHECK 0; SAMPLE ICTERIC CHECK 0; SAMPLE LIPEMIA CHECK 0; SODIUM 137 MEQ/L (136-147)
[2017-07-17 08:54] LABS: GFR ESTIMATE (CALCULATED) 8 mL/min/; GLUCOSE 189 mg/dL (70-99); UREA NITROGEN (BUN) 38 mg/dL (9-23)
[2017-07-17 09:11] LABS: PLATELET COUNT 201 K/uL (156-360)
[2017-07-17 10:07] LABS: ADD MIUA? YES; BILIRUBIN NEGATIVE; BLOOD LARGE; COLOR YELLOW ((YELLOW)); GLUCOSE (STRIP) 50; KETONES NEGATIVE; LEUKOCYTES SMALL; NITRITE NEGATIVE; PROTEIN (STRIP) >=500; SPECIFIC GRAVITY 1.014 (1.000-1.030); UROBILINOGEN 0.2 MG/DL (0.2-1.0)
[2017-07-17 10:15] LABS: BACTERIA RARE /HPF; EPITHELIAL CELLS RARE /HPF; GRANULAR CASTS 0-5 /LPF; HYALINE CASTS 0-5 /LPF; MUCUS NONE SEEN /LPF; RED BLOOD CELLS TNTC /HPF (0-5); UCUL ADDED? YES
[2017-07-17] MEDS ORDERED: CIPRO500 MG PO (10:46)
[2017-07-17 11:24] VITALS: BP 157/84
== END 2017-07-17 11:54 | disposition home or self-care (01) ==
LOC: EME 07:31
PROVIDERS: Emergency Medicine
DX: N39.0 Urinary tract infection, site not specified (principal); R31.9 Hematuria, unspecified; T83.098A Other mechanical complication of other urinary catheter, initial encounter; W06.XXXA Fall from bed, initial encounter; Y92.003 Bedroom of unspecified non-institutional (private) residence as the place of occurrence of the external cause; R23.3 Spontaneous ecchymoses; E11.22 Type 2 diabetes mellitus with diabetic chronic kidney disease; I12.0 Hypertensive chronic kidney disease with stage 5 chronic kidney disease or end stage renal disease; N18.6 End stage renal disease; Z99.2 Dependence on renal dialysis; Z79.02 Long term (current) use of antithrombotics/antiplatelets; F17.200 Nicotine dependence, unspecified, uncomplicated
CPT/HCPCS: 80048; 81003; 83605; 85027; 85610; 85730; 87040; 87077; 87086; 87186; 87801; 99281; 99285; J7040

== ENCOUNTER 2017-07-19 12:54 | Emergency (ER) | payer BC, OTHER ==
[~2017-07-19] VITALS: Ht 167.6 cm; Wt 81.0 kg
[~2017-07-19 12:54] MED LIST changes: +CIPRO500 MG PO
[2017-07-19 14:20] LABS: EOSINOPHIL (%) 1.5 % (0-5); EOSINOPHIL COUNT 0.2 K/uL (0-0.3); HEMATOCRIT 33.2 % (38.0-50.0); IMMATURE GRANULOCYTE COUNT 0.1 K/uL; INSTRUMENT ABS NEUTROPHIL CT 9.5 K/uL; LYMPHOCYTE COUNT 0.8 K/uL (1.0-2.8); MCH 29.4 PG (29.0-34.0); MCHC 32.8 G/DL (30.0-36.0); MCV 89.5 FL (86-99); MEAN PLAT.VOLUME 8.8 uM^3 (9.0-12.4); MONOCYTE (%) 7.9 % (3-12); MONOCYTE COUNT 0.9 K/uL (0-0.8); NEUTROPHIL (%) 82.5 % (45-76); NEUTROPHIL COUNT 9.5 K/uL (1.8-6.4); PLATELET COUNT 194 K/uL (156-360); RBC DIS.WIDTH-CV 12.9 % (11.8-14.6); RBC DIS.WIDTH-SD 42.6 % (39-53); RED BLOOD COUNT 3.71 M/uL (4.00-5.50); WHITE BLOOD COUNT 11.6 K/uL (4.1-10.2)
[2017-07-19 14:31] LABS: CHLORIDE 99 mEq/L (99-109); POTASSIUM 4.6 mEq/L (3.7-5.4); SODIUM 137 mEq/L (136-147)
[2017-07-19 14:34] LABS: ANION GAP 14 MEQ/L (2-14)
[2017-07-19 14:35] LABS: GLUCOSE 113 mg/dL (70-99); TOTAL BILIRUBIN 0.5 mg/dL (0.0-1.0)
[2017-07-19 14:37] LABS: ALKALINE PHOSPHATASE 86 IU/L (3-129); GFR ESTIMATE (CALCULATED) 6 mL/min/
[2017-07-19 14:41] LABS: UREA NITROGEN (BUN) 58 mg/dL (9-23)
[2017-07-19 14:42] LABS: TROP-I INTERPRETATION NEGATIVE; TROPONIN-I 0.08 ng/mL (0.0-0.30)
[2017-07-19 18:51] VITALS: BP 94/59
== END 2017-07-19 18:51 | disposition short-term general hospital (02) ==
LOC: EME 12:54
PROVIDERS: Emergency Medicine
DX: E11.52 Type 2 diabetes mellitus with diabetic peripheral angiopathy with gangrene (principal); I77.1 Stricture of artery; I12.0 Hypertensive chronic kidney disease with stage 5 chronic kidney disease or end stage renal disease; E11.22 Type 2 diabetes mellitus with diabetic chronic kidney disease; N18.6 End stage renal disease; Z99.2 Dependence on renal dialysis; Z91.15 Patient's noncompliance with renal dialysis; F41.9 Anxiety disorder, unspecified; F03.90 Unspecified dementia, unspecified severity, without behavioral disturbance, psychotic disturbance, mood disturbance, and anxiety; Z86.73 Personal history of transient ischemic attack (TIA), and cerebral infarction without residual deficits; Z87.891 Personal history of nicotine dependence; Z95.820 Peripheral vascular angioplasty status with implants and grafts
CPT/HCPCS: 71010; 80053; 82140; 83605; 84484; 85025; 87040; 93005; 93926; 99281; 99284